=== PATIENT | female | born 1970 | race Caucasian/White ===

== ENCOUNTER 2024-05-24 19:55 | Emergency (ER) | payer OTHER ==
--- NOTE | 2024-05-24 21:48 | ED Physician Documentation ---
PD HPI BACK PAIN - Stated complaint Stated Complaint: BACK PX - Chief complaint Chief Complaint: Back Pain - History obtained from History obtained from: Patient - Additional information Additional information: HPI from patient. Patient complains of right paralumbar pain that radiates around the right flank to the right upper quadrant. Onset 3 days ago without inciting event. The pain waxes and wanes without any apparent ameliorating nor exacerbating factors. She has had episodic nausea but no vomiting. She denies history of similar symptoms. Denies fever, dysuria, hematuria. Patient was evaluated in a walk-in clinic earlier today for this and was given Toradol IM along with prescriptions for naproxen and methocarbamol. None of these interventions have provided any degree of relief. No past abdominal surgical history (patient has had a C- section). Review of Systems Constitutional: denies: Fever, Chills, Sweats Cardiac: reports: Reviewed and negative Respiratory: reports: Reviewed and negative GI: reports: Nausea, Constipation. denies: Abdominal Pain (back/flank pain radiates to RUQ but not abdominal pain per se), Vomiting, Diarrhea : denies: Dysuria, Frequency, Hematuria Skin: denies: Rash Musculoskeletal: reports: Back pain PD PAST MEDICAL HISTORY - Past Medical History Past Medical History: No Cardiovascular: None Respiratory: None Neuro: None Endocrine/Autoimmune: None GI: None DIRECTOR CAREER: None : None HEENT: None Psych: None Musculoskeletal: None Derm: None - Past Surgical History Past Surgical History: Yes /DIRECTOR CAREER: section - Present Medications Home Medications: Ambulatory Orders Medication Instructions Recorded Confirmed Ondansetron Odt [Zofran Odt] 4 mg TL Q6H PRN #10 tablet 05/25/24 Oxycodone HCl/Acetaminophen 1 - 2 each PO Q6H PRN #14 tablet 05/25/24 [Percocet 5-325 mg Tablet] - Allergies Allergies/Adverse Reactions: Allergies Allergy/AdvReac Type Severity Reaction Status Date / Time No Known Drug Allergies Allergy Verified 05/24/24 20:38 - Social History Does the pt smoke?: No Smoking Status: Never smoker Does the pt drink ETOH?: No Does the pt have substance abuse?: No - Immunizations Immunizations are current?: Yes - POLST Patient has POLST: No PD ED PE NORMAL - Vitals Vital signs reviewed: Yes - General General: Alert and oriented X 3, Well developed/nourished, Other (appears to be uncomfortable, mild/moderate painful distress at times) - Cardiac Cardiac: RRR, No murmur - Respiratory Respiratory: No respiratory distress, Clear bilaterally - Abdomen Abdomen: Normal bowel sounds, Soft, Non tender - Back Back: No CVA TTP - Derm Derm: Normal color, Warm and dry, No rash Results - Vitals Vitals: Oxygen O2 Source Room air - Labs Labs: Laboratory Tests 05/24/24 05/24/24 05/24/24 22:30 22:30 23:44 WBC 9.6 RBC 4.06 L Hgb 13.2 Hct 39.7 MCV 97.8 MCH 32.5 H MCHC 33.2 RDW 13.6 Plt Count 203 MPV 10.8 Neut # (Auto) 8.1 H Lymph # (Auto) 0.9 L Barry # (Auto) 0.6 Eos # (Auto) 0.0 Baso # (Auto) 0.0 Absolute Nucleated RBC 0.00 Nucleated RBC % 0.0 Sodium 137 Potassium 3.6 Chloride 106 Carbon Dioxide 23 Anion Gap 8.0 BUN 13 Creatinine 0.6 Estimated GFR (MDRD) 104 Glucose 111 H Calcium 9.3 Total Bilirubin 0.5 AST 16 ALT 18 Alkaline Phosphatase 61 Total Protein 7.4 Albumin 4.3 Globulin 3.1 Albumin/Globulin Ratio 1.4 Lipase 12 Urine Color YELLOW Urine Clarity CLEAR Urine pH 6.0 Ur Specific [place] 1.015 Urine Protein NEGATIVE Urine Glucose (UA) NEGATIVE Urine Ketones 15 H Urine Occult Blood NEGATIVE Urine Nitrite NEGATIVE Urine Bilirubin NEGATIVE Urine Urobilinogen 0.2 (NORMAL) Ur Leukocyte Esterase TRACE H Urine RBC None Seen Urine WBC 6-10 H Ur Squamous Epith Cells MOD Squamous H Urine Bacteria Few Ur Microscopic Review INDICATED Urine Culture Comments NOT INDICATED - Rads (name of study) CT A/P with IV contrast Relevant Findings:: Prelim report reviewed, See rad report RUQ US Relevant Findings:: Prelim report reviewed, See rad report PD Medical Decision Making - ED course Complexity details: reviewed results, re-evaluated patient, considered differential, d/w patient ED course: No concerning nor diagnostic findings on blood tests including CBC, ER abdominal panel. Unremarkable urinalysis results. These results include normal LFTs, lipase. Both the CT of the abdomen pelvis as well as the right upper quadrant ultrasound demonstrate cholelithiasis. Radiologist interpretation includes cholecystitis. However, the patient's LFTs and lipase are normal as noted above. Normal caliber of both intrahepatic and extrapelvic bile ducts on ultrasound. Pain was controlled with aliquots of 1 mg Dilaudid IV (total of 4 doses during long ED stay). She was also given 4 mg IV Zofran and 1 L normal saline IV. Results discussed with patient, return precautions were very carefully reviewed and emphasis was placed on having a low threshold for return due to the concern for cholecystitis based on the radiologic studies. I advised her to contact PCP to inquire as to the referral process to a general surgeon. She is provided take-home packs of Percocet and ondansetron, and I electronically submitted prescriptions for both these medications to the patient's pharmacy of choice. Departure - Departure Disposition: 01 Home, Self Care Clinical Impression: Biliary colic Condition: Good Instructions: ED Gallstone W Biliary Colic Follow-Up: Marcelo Braga MD [Provider Admit Priv/Credential] - Prescriptions: Oxycodone HCl/Acetaminophen [Percocet 5-325 mg Tablet] 1 - 2 each PO Q6H PRN #14 tablet PRN Reason: pain Ondansetron Odt [Zofran Odt] 4 mg TL Q6H PRN #10 tablet PRN Reason: Nausea / Vomiting Comments: Both the CT scan and the ultrasound demonstrate multiple gallstones; this is what is causing your abdominal/back pain. Fortunately, there were no concerning findings on your blood tests, including your liver function tests. You need to follow-up with a general surgeon for reevaluation. I have provided the name, office information including the phone number for the on-call surgeon for [facility] within these discharge instructions (below). One option is to contact the surgeons office this morning and see if they can accommodate follow-up for reevaluation of your gallstones. However, your insurance might require a referral from your primary care provider. If this is the case, you can contact your primary care provider to inquire about the referral process. I have electronically submitted prescriptions for Percocet (narcotic/opiate pain medication) and ondansetron (antinausea medication) to the [facility] pharmacy in [place]. Please return to the emergency department if your symptoms worsen and are not responding to these prescribed medications, or if you develop new/concerning signs/symptoms (such as fever, yellow discoloration of the eyes/skin, blood in vomit/stool). As we discussed, an incidental finding on the CT scan was enlarged uterus. You need to follow up with your primary care provider regarding this finding; further tests might be needed to further assess this finding (such as an ultrasound). I am prescribing a short course of narcotic pain medication for you. These are potentially dangerous and addictive medications that should be used carefully. These medications may constipate you. Take an [id number] stool softener (docusate) twice daily with plenty of water while taking these medications. If you go 24 hours without a bowel movement, take [id number] miralax, per package instructions. Do not drink or drive while taking these medications. If you received narcotic or sedating medications while in the emergency department, do not drive for 24 hours. Store this medication in a safe, secure place and out of reach of children. It is a violation of federal law to give or sell this medication to another person or to use in a manner other than prescribed. The ED will not refill narcotic prescriptions, including prescriptions lost or stolen. To dispose of unwanted medications: 1. [facility]'s Department [facility] [address] in [place] has a medication drop box. They accept prescription medications (in pill form) Wednesday through Wednesday 9:00 a.m. to 5:00 p.m. 2. The [facility] accepts prescription medications (in pill form only) for disposal year round. Call for more information. 3. Contact the [facility] for the next [facility] sponsored prescription drug collection event. , [phone], or [phone]; Discharge Date/Time: 05/25/24 04:45
[2024-05-24] MEDS ORDERED: iohexoL-300 100 ML VIAL ONE (22:04)
[2024-05-24] MEDS: SODIUM CHLORIDE 0.9% 1,000 ML IV STA (22:21)
[2024-05-24] MEDS: ONDANSETRON 4 MG/2 ML VIAL IVP STA (22:21)
[2024-05-24] MEDS: HYDROmorphone 1 MG/ML CARPUJECT IVP STA ×2 (22:23→23:32)
[2024-05-24 22:36] LABS: BASOPHILS % (AUTO) 0.2 %; EOSINOPHILS % (AUTO) 0.1 %; HCT - HEMATOCRIT 39.7 % (37.0-47.0); HGB - HEMOGLOBIN 13.2 g/dL (12.0-16.0); LYMPHOCYTES # (AUTO) 0.9 10^3/uL (1.5-3.5); LYMPHOCYTES % (AUTO) 9.6 %; MEAN CORPUSCULAR HEMOGLOBIN 32.5 pg (27.0-31.0); MEAN CORPUSCULAR HGB CONC 33.2 g/dL (32.0-36.0); MEAN CORPUSCULAR VOLUME 97.8 fL (81.0-99.0); MEAN PLATELET VOLUME 10.8 fL (7.9-10.8); MONOCYTES # (AUTO) 0.6 10^3/uL (0.0-1.0); MONOCYTES % (AUTO) 5.8 %; NEUTROPHILS # (AUTO) 8.1 10^3/uL (1.5-6.6); NEUTROPHILS % (AUTO) 84.1 %; PLT - PLATELET COUNT 203 10^3/uL (130-450); RED BLOOD COUNT 4.06 10^6/uL (4.20-5.40); RED CELL DISTRIBUTION WIDTH 13.6 % (12.0-15.0); WHITE BLOOD COUNT 9.6 x10^3/uL (4.8-10.8)
[2024-05-24 22:52] LABS: ALBUMIN 4.3 g/dL (3.2-5.5); ALBUMIN/GLOBULIN RATIO 1.4 (1.0-2.2); BILIRUBIN,TOTAL 0.5 mg/dL (0.2-1.0); CALCIUM 9.3 mg/dL (8.5-10.3); CREATININE 0.6 mg/dL (0.6-1.3); POTASSIUM 3.6 mmol/L (3.5-4.5); TOTAL PROTEIN 7.4 g/dL (6.4-8.9)
[2024-05-24] MEDS: iohexoL-300 100 ML VIAL IVP ONE (23:17)
--- NOTE | 2024-05-24 23:35 | CT Report ---
PROCEDURE: Abdomen/Pelvis W INDICATIONS: right flank pain CONTRAST: omni 300, 100ms TECHNIQUE: After the administration of intravenous contrast, a CT scan of the abdomen and pelvis was performed. Images were recorded and evaluated at appropriate window settings. Reformats: coronal and sagittal. F or radiation dose reduction, the following was used: automated exposure control, adjustment of mA and /or kV according to patient size. COMPARISON: None. FINDINGS: Image quality: Diagnostic. Lower chest: Unremarkable. Liver: No solid mass. Gallbladder: Gallstones with gallbladder focal wall thickening, concerning for acute cholecystitis. Biliary tree: No intrahepatic or extrahepatic dilation, accounting for age. Spleen: No splenomegaly. Pancreas: No pancreatic ductal dilation. Adrenals: No adrenal nodule. Kidneys and ureters: No hydronephrosis. No renal cystic lesion which requires follow up. No solid mas s. No nephrolithiasis. Stomach, bowel and peritoneum: No gastric or small bowel dilation. No abnormal wall thickening. No pa thologic free fluid. Normal appendix. Lymph nodes: No central or retroperitoneal adenopathy. Vessels: No infrarenal aortic aneurysm. Patent portal vein. PELVIS Reproductive organs: The uterus is enlarged. Bladder: No abnormal wall thickening, accounting for underdistention. Pelvic lymph nodes: No pelvic adenopathy by size criteria. Bones: No aggressive osseous abnormality. Degenerative changes of the spine. Other: No significant ventral or inguinal hernia. IMPRESSION: Cholelithiasis with focal gallbladder wall thickening, concerning for acute cholecystitis. Correlate with Ho sign. The uterus is enlarged, atypical for age. Differential includes adenomyosis, fibroids or less likely malignancy. Correlation with nonemergent ultrasound. Reviewed by: Frankie Alberto MD on 05/24/2024 11:33 PM PDT Approved by: Frankie Alberto MD on 05/24/2024 11:33 PM PDT Station ID: [id number]
[2024-05-24 23:51] LABS: BILIRUBIN,URINE NEGATIVE (NEGATIVE); GLUCOSE, URINE (UA) NEGATIVE (NEGATIVE); KETONES,URINE (UA) 15 mg/dL (NEGATIVE); LEUKOCYTE ESTERASE, URINE TRACE (NEGATIVE); NITRITE,URINE NEGATIVE (NEGATIVE); OCCULT BLOOD,URINE NEGATIVE (NEGATIVE); PROTEIN,URINE NEGATIVE (NEGATIVE); UROBILINOGEN,URINE 0.2 (NORMAL) E.U./dL (NORMAL)
[2024-05-24 23:52] LABS: CLARITY,URINE CLEAR (CLEAR)
[2024-05-25 00:05] LABS: RBC,URINE None Seen /HPF (0-5)
[2024-05-25 00:06] LABS: BACTERIA,URINE Few /HPF (None Seen); SQUAMOUS EPITHELIAL CELL,UR MOD Squamous (<= Few)
--- NOTE | 2024-05-25 00:35 | Ultrasound Report ---
PROCEDURE: Abdomen Limited INDICATIONS: RUQ pain TECHNIQUE: Real-time focused scanning was performed of the abdomen, with image documentation. COMPARISONS: Same day CT. FINDINGS: Liver: Increased liver echogenicity, commonly mild hepatic steatosis. Gallbladder: Cholelithiasis with gallbladder wall thickening. Positive sonographic Ho sign. Biliary ducts: Intrahepatic bile ducts are non-dilated. Extrahepatic bile duct caliber measures 4 m m. Normal is 6-7 mm or less in diameter, or 10 mm or less post-cholecystectomy. Pancreas: Not well visualized due to overlying bowel gas. Right kidney: Normal in size and echotexture. Right kidney measures 9.3 cm long. No hydronephrosis o r nephrolithiasis. No solid masses. No complex renal cystic lesions which require follow-up. IVC: Intrahepatic inferior vena cava is patent. Miscellaneous: No free abdominal fluid. IMPRESSION: Acute cholecystitis, cholelithiasis, gallbladder wall thickening and positive sonographic Ho sign . Reviewed by: Frankie Alberto MD on 05/25/2024 12:34 AM PDT Approved by: Frankie Alberto MD on 05/25/2024 12:34 AM PDT Station ID: [id number]
[2024-05-25] MEDS: HYDROmorphone 1 MG/ML CARPUJECT IVP STA ×2 (01:38→02:53)
[2024-05-25 04:09] VITALS: BP 141/91; O2SAT 92
[2024-05-25] MEDS: oxyCODONE/ACET 5/325 Prepack 4 PO STA (04:19)
[2024-05-25] MEDS: ONDANSETRON ODT 4 MG Prepack 2 TL PRN (04:20)
== END 2024-05-25 04:45 | disposition home or self-care (01) ==
LOC: ED 19:55
DX: K80.50 Calculus of bile duct without cholangitis or cholecystitis without obstruction (principal)
CPT/HCPCS: 36415; 74177; 76705; 80053; 81001; 83690; 85025; 96374; 96375; 96376; 99284; A9270; J1170; Q9967; 81003; 87086

== ENCOUNTER 2024-05-30 10:06 | Day surgery (SDC) | payer OTHER ==
[2024-05-30] MEDS ORDERED: ceFAZolin 2 GM VIAL ONE (10:11)
[2024-05-30 10:32] LABS: HCG UR QUAL NEGATIVE
[2024-05-30] MEDS: LACTATED RINGERS 1,000 ML IV ONE (10:40)
[2024-05-30] MEDS ORDERED: HYDROmorphone 0.5 MG/0.5 ML SYRINGE IVP PRN (11:03)
[2024-05-30] MEDS ORDERED: ePHEDrine 50 MG/ML VIAL IVP PRN (11:03)
[2024-05-30] MEDS ORDERED: ONDANSETRON 4 MG/2 ML VIAL IVP PRN ×2 (11:03→15:01)
[2024-05-30] MEDS ORDERED: NALOXONE 0.4 MG/ML VIAL IVP PRN (11:03)
[2024-05-30] MEDS ORDERED: fentaNYL 100 MCG/2 ML VIAL IVP PRN (11:03)
[2024-05-30] MEDS: SCOPOLAMINE PATCH TOP SCH (11:06)
--- NOTE | 2024-05-30 11:29 | ANESTHESIA ---
Pre-Anesthesia VS, & Labs - Diagnosis symptomatic cholelithiasis - Procedure lap georgette Vital Signs: Temp Pulse Resp BP Pulse Ox O2 Flow Rate 36.9 C 68 16 119/73 97 05/30/24 10:35 05/30/24 10:35 05/30/24 10:35 05/30/24 10:35 05/30/24 10:35 Height: 5 ft 10 in Weight (kg): 112 kg Body Mass Index: 35.4 BMI Classification: Obese - NPO >8 hours - Is Patient ?: No Home Medications and Allergies Active Medications Ephedrine Sulfate (Ephedrine 50 Mg/Ml Vial) 10 mg IVP Q5M PRN PRN Reason: HYPOTENSION Stop: 05/31/24 11:03 Fentanyl (Fentanyl 100 Mcg/2 Ml Vial) 25 - 50 mcg IVP Q5M PRN PRN Reason: BREAKTHROUGH PAIN (2nd Choice) Stop: 05/31/24 11:03 Hydromorphone HCl (Hydromorphone 0.5 Mg/0.5 Ml Syringe) 0.2 - 0.6 mg IVP Q5M PRN PRN Reason: PAIN (First Choice) Stop: 05/31/24 11:03 Lactated Ringer's (Lr) 1,000 mls @ 100 mls/hr IV .Q10H GRAY Stop: 05/30/24 21:59 Naloxone HCl (Naloxone 0.4 Mg/Ml Vial) 0.1 mg IVP Q2M PRN PRN Reason: RESP RATE <8 Stop: 05/31/24 11:03 Ondansetron HCl (Ondansetron 4 Mg/2 Ml Vial) 4 mg IVP ONCE PRN PRN Reason: N/V (First Choice) Stop: 05/31/24 11:03 Scopolamine HBr (Scopolamine Patch) 1 patch TOP Q3D GRAY Last Admin: 05/30/24 11:06 Dose: 1 patch Allergies/Adverse Reactions: Allergies Allergy/AdvReac Type Severity Reaction Status Date / Time codeine AdvReac Itching Verified 05/30/24 10:23 Anes History & Medical History - Anesthetic History Anesthesia Complications: reports: Post-Operative Nausea/Vomiting - Medical History Cardiovascular: reports: None Pulmonary: reports: None Gastrointestinal: reports: None Urinary: reports: None Neuro: reports: None Musculoskeletal: reports: None Endocrine/Autoimmune: reports: None Blood Disorders: reports: None Skin: reports: None Smoking Status: Never smoker Psychosocial: reports: Alcohol (several times per week), Cannabis (daily smoking) History of Cancer?: No - Surgical History Gynecologic: reports: section, Endometrial ablation, Dilation and currettage, Other Exam General: Alert, Oriented x3, Cooperative, No acute distress Dental: WNL Mouth Openin Fingerbreadth Neck Mobility: Normal Mallampati classification: III Thyromental Distance: 4-6 cm Mental/Cognitive Status: Alert/Oriented X3, Normal for patient Plan Anesthesia Type: General Consent for Procedure(s) Verified and Reviewed: Yes Code Status: Attempt Resuscitation ASA classification: 2-Mild systemic disease Is this case an emergency?: No
[2024-05-30] MEDS ORDERED: fentaNYL 100 MCG/2 ML VIAL ONE ×3 (11:38→12:30)
[2024-05-30] MEDS: fentaNYL 100 MCG/2 ML VIAL IVP PRN (11:43)
[2024-05-30] MEDS ORDERED: LACTATED RINGERS 1,000 ML IV SCH (12:00)
[2024-05-30] MEDS ORDERED: ROCURONIUM 50 MG/5 ML VIAL ONE ×2 (12:17→12:20)
[2024-05-30] MEDS ORDERED: PROPOFOL 200 MG/20 ML VIAL IVP ONE (12:17)
[2024-05-30] MEDS ORDERED: MIDAZOLAM 2 MG/2 ML VIAL ONE (12:18)
[2024-05-30] MEDS ORDERED: LIDOCAINE-PF 2% 10 ML AMP SUBQ ONE (12:18)
[2024-05-30] MEDS ORDERED: BUPIVACAINE 0.5% PF 10 ML VIAL ONE (12:20)
[2024-05-30] MEDS: BUPIVACAINE 0.5% PF 30 ML VIAL SUBQ ONE (13:38)
[2024-05-30] MEDS ORDERED: LABETALOL 5 MG/1 ML 20 ML MDV ONE ×2 (13:51→14:43)
[2024-05-30] MEDS ORDERED: ONDANSETRON 4 MG/2 ML VIAL ONE (14:01)
[2024-05-30] MEDS ORDERED: DEXAMETHASONE 4 MG/ML VIAL ONE (14:01)
[2024-05-30] MEDS ORDERED: SUGAMMADEX 200 MG/2 ML VIAL IVP ONE (14:43)
[2024-05-30] MEDS: LACTATED RINGERS 600 ML IV ONE (15:04)
--- NOTE | 2024-05-30 15:07 | OPERATIVE REPORT ---
Operative Report - General Procedure Date: 05/30/24 Planned Procedure: Laparoscopic cholecystectomy, Possible open cholecystectomy, possible common bile duct inspiration, possible intraoperative cholangiogram Pre-Op Diagnosis: Symptomatic cholelithiasis Procedure Performed: Laparoscopic cholecystectomy Post Op Diagnosis: Same - Procedure Note Primary Surgeon: Gurwinder Antonio MD Anesthesia Provider: Feliciano Menjivar CRNA Anesthesia Technique: General ET tube, Local (30 mL of half percent Marcaine) IV Fluids (mL): 1,400 Estimated Blood Loss (mL): 20 Drain/Tube Type: Other (None) Indications: Symptomatic cholelithiasis Findings: Almost completely intrahepatic gallbladder Complications: None - Other Other Information/Narrative: After verbal and written informed consent was obtained detailing the operation, the alternatives to the operation including no operation, risks of infection, bleeding requiring transfusion with its risks, nerve injury, and and after I met with the patient confirming the surgery, the patient was brought to the operative suite and placed supine on the operating table. Great care was taken to avoid pressure points to prevent pressure necrosis or nerve injury. Monitoring devices were applied along with TEDs and pneumatic compressive stockings (to prevent DVT). The patient received preoperative antibiotics for surgical prophylaxis. Feliciano Menjivar CRNA sedated and anesthetized the patient for the entire procedure. The patient was prepped and draped in usual sterile manner. A "time in" then confirmed that the patient was identified with 3 identifiers (name, date, and medical record number), the history and physical was in the chart, the signed consent confirming the procedure was in t he chart, the patient was in the correct position, the aforementioned prophylactic measures were in place were given, we had the correct personnel and equipment to complete the procedure and that anesthesia, and the surgical team was given an opportunity to express any concerns. With the agreement of everyone in the room, we proceeded with the operation. The initial incision was at the umbilicus and dissection to the linea alba was completed using blunt dissection. The linea alba was grasped with a Dawn and incised. In a similar manner the peritoneum was grasped and incised using Metzenbaum scissors. In this location, a 12 mm blunt tipped, balloon tipped port was placed and the balloon was inflated to keep the port in position. The abdominal cavity was insufflated with carbon dioxide to a steady-state pressure of 15 mmHg. 3 additional 5 mm ports were placed in standard locations for laparoscopic cholecystectomy (subxiphoid and 2 right subcostal) under direct vision of the 30 degree laparoscope and without incident. The patient was then placed in reverse Trendelenburg position and was rotated slightly to their left. This cholecystectomy was markedly harder due to an almost completely intrahepatic gallbladder. This made visualization difficult and dissection on either side of the gallbladder from the liver bed sing Bovie electrocautery and traction-countertraction was performed in order to appropriately see and dissect the neck of the gallbladder. The gallbladder fundus was grasped with an atraumatic grasper. Multiple adhesions had to be taken down by blunt and sharp dissection along with electrocautery. Eventually, I identified the infundibulum and this was then grasped and retracted superiorly and laterally. Dissection was then begun at the angle of Calot. The cystic duct and (slightly medially and posteriorly), cystic artery were clearly identified. The critical view was obtained and a photograph taken. 2 clips proximally and one clip distally were used to control both the cystic duct and cystic artery. The clips were carefully placed to avoid occluding the juncture with the common bile duct. Both the cystic duct and then the cystic artery were then transected with laparoscopic liu. The gallbladder was then removed from its fossa in a retrograde manner using electrocautery. The normal plane between the gallbladder and liver was difficult to dissect due to the inflammation as well as intrahepatic nature of the gallbladder and as such some of the liver was entered but there is no significant bleeding. With the 30 degree 5 mm scope in the subxiphoid position, the gallbladder was placed in an Endo Catch bag to be extracted through the 12 mm port site. I irrigated the right upper quadrant with 4 lietrs of warm sterile saline and the area was aspirated dry. I inspected the gallbladder fossa and there was no bleeding or bile leak. Clips on the cystic duct and cystic artery appeared to be secure. I briefly visually explored the abdomen. There was no other evidence of overt pathology. I injected the port sites at the peritoneal, fascial, and skin levels under direct vision with 0.5% Marcaine. All ports and the Endo Catch containing the gallbladder were removed. Following gallbladder removal, the remaining carbon dioxide was expelled from the abdomen. The fascia the umbilicus was approximated using 2 [id number] 0 Vicryl sutures. The skin at each port site was approximated using a subcuticular 4-0 Monocryl. Dermabond was then placed over the wounds. At this point a "timeout" was performed that confirmed that all counts were correct, the procedure that was performed, the blood loss, the IV fluids administered, the patient's condition and any concerns of the operating team had. Having tolerated the procedure well, the patient was extubated and taken to recovery room in good and stable condition. The plan is for outpatient discharge when the patient is adequately recovered. CPT 14676 This document was created in part using voice recognition technology. Because of the inherent limitations of the system, occasional same sounding word substitutions and grammatical errors do occur and persist despite proofreading. Please read this document for context.
[2024-05-30] MEDS: KETOROLAC 15 MG/ML VIAL ONE (15:10)
[2024-05-30] MEDS: ACETAMINOPHEN 1,000 MG/100 ML 1,000 MG/100 ML BAG IV ONE (15:19)
[2024-05-30] MEDS: HYDROmorphone 1 MG/ML CARPUJECT ONE (15:30)
[2024-05-30] MEDS ORDERED: HYDROmorphone 1 MG/ML CARPUJECT ONE (15:32)
--- NOTE | 2024-05-30 15:32 | ANESTHESIA POST OP EVALUATION ---
Anesthesia Post Eval - Post Anesthesia Eval Vitals: Last Vital Signs Temp 36.3 C L 05/30/24 15:04 Pulse 63 05/30/24 15:30 Resp 17 05/30/24 15:30 BP 134/83 H 05/30/24 15:30 Pulse Ox 93 05/30/24 15:30 O2 Flow Rate CV Function Including HR & BP: Stable Pain Control: Satisfactory Nausea & Vomiting: Negative Mental Status: Baseline Respiratory Status: Airway Patent Hydration Status: Satisfactory Anesthesia Complications: None
[2024-05-30] MEDS: oxyCODONE 5 MG TABLET ONE (16:14)
[2024-05-30] MEDS: KETOROLAC 30 MG/ML VIAL IVP ONE (17:24)
--- NOTE | 2024-05-30 17:28 | XRAY Report ---
PROCEDURE: Chest 2V INDICATIONS: LOW SATS POST OP. TECHNIQUE: 2 views of the chest were acquired. COMPARISON: None. FINDINGS: Surgical changes and devices: None. Lungs and pleura: No pleural effusions or pneumothorax. Patchy bibasilar densities may represent ate lectasis versus infiltrate. Mediastinum: Mediastinal contours appear normal. Heart size is normal. Bones and chest wall: No suspicious bony lesions. Overlying soft tissues appear unremarkable. IMPRESSION: Patchy bibasilar atelectasis versus infiltrates. Progress films are recommended until clear. Reviewed by: Calos Villeda MD on 05/30/2024 5:27 PM PDT Approved by: Calos Villeda MD on 05/30/2024 5:27 PM PDT Station ID: [id number]
[2024-05-30] MEDS: HYDROcod/ACETAM 5/325 MG TABLET PO PRN (17:38)
[2024-05-30] MEDS: HYDROmorphone 0.5 MG/0.5 ML SYRINGE IVP PRN (18:39)
[2024-05-30] MEDS: oxyCODONE 5 MG TABLET PO PRN (23:37)
--- NOTE | 2024-05-31 14:31 | PHARMACY PROGRESS NOTE ---
- Best Possible Medication History Admit Date and Time: Processed by: Pharmacy Medications reviewed in ED?: No Medication History completed: Yes Patient Interview: Completed Secondary Source(s): Insurance records As the person ultimately responsible for medication therapy, providers are able to order a medication from an existing home medication list in [facility] via the "Reconcile Routine" prior to Confirmation of that medication by user support analyst. Such practice is discouraged except when the physician, in their clinical judgment, deems that a medical need exists for a medication without regard to previous use.
[2024-05-31 17:45] VITALS: BP 135/81; O2SAT 94
== END 2024-05-31 17:50 | disposition home or self-care (01) ==
LOC: SDS 10:06 → MS2 16:37 → SDS 05-31 17:50
PROVIDERS: ATTEND Surgery
PROC: 0FT44ZZ Resection of Gallbladder, Percutaneous Endoscopic Approach (ICD-10-PCS; principal; 2024-05-30 11:30)
DX: K80.10 Calculus of gallbladder with chronic cholecystitis without obstruction (principal); E66.9 Obesity, unspecified; Z68.35 Body mass index [BMI] 35.0-35.9, adult
CPT/HCPCS: 47562; 71046; 81025; A9270; J0131; J1170; J3490; J7120

== ENCOUNTER 2024-06-16 12:15 | Outpatient (CLI) | payer OTHER ==
--- NOTE | 2024-06-17 07:07 | XRAY Report ---
PROCEDURE: Thoracic Spine 2V INDICATIONS: BACK PAIN, THORACIC REGION TECHNIQUE: 2 views of the thoracic spine were acquired. COMPARISON: None. FINDINGS: Bones: No fractures or dislocations. No suspicious bony lesions. 12 pairs of ribs are noted, and a ppear intact where visualized. Soft tissues: No paravertebral stripe thickening. IMPRESSION: No acute bony abnormality. No significant degenerative change. Reviewed by: Frankie Alberto MD on 06/17/2024 7:05 AM PDT Approved by: Frankie Alberto MD on 06/17/2024 7:05 AM PDT Station ID: [id number]
== END 2024-06-16 12:30 | disposition home or self-care (01) ==
LOC: DI.N 12:15
PROVIDERS: ATTEND Physician Assistant Medical
DX: M54.6 Pain in thoracic spine (principal)